=== PATIENT | female | born 1930 | race Caucasian/White ===

== ENCOUNTER 2016-09-13 19:59 | Inpatient (IN) | payer OTHER ==
--- NOTE | 2016-09-13 20:10 | PDOC ---
History of Present Illness - General History Source: Patient Exam Limitations: No Limitations - History of Present Illness Initial Comments: 09/13/16 21:24 A portion of this note was documented by scribe services under my direction. I have reviewed the details of the note, within reason, and agree with the documentation. The case summary and management plan written by me. Assessment and plan: This is an 86-year-old female who comes in with increasing confusion over the last 48 hours. Patient is brought in by her family for evaluation. Patient went to her primary care doctor who told her she should be admitted to the hospital for altered mental status workup. Patient had a CT that was negative for any acute pathology. Patient's EKG showed atrial fibrillation at a rate of 91 patient has a history of atrial fibrillation and is xeralto. Patient said she has been med compliant. Patient's checks S sclerae shows no acute pathology Patient will be admitted to an inpatient bed under the service of Dr. Snow. <Mary Saenz I - Last Filed: 09/13/16 21:24> - General History Source: Patient, Family Exam Limitations: No Limitations - History of Present Illness Initial Comments: 09/13/16 20:32 The patient is a 86 year old female, with significant past medical history of HTN, HLD, Afib, glaucoma, who presents today complaining of 10 days of confusion. The patient states that she is confused because she is forgetting what month and what day it is. The patients sisters accompany her to the emergency room and states that she has not been able to carry on normal conversation. The patient lives on her own. The patient complains of dysuria and believes that she may have a UTI. She visited her PCP at [facility] in the city today who tested negative for a UTI. Her PCP recommended she go across the street to the [facility] emergency department, but they came to this hospital instead. Denies chest pain, SOB, palpitations. Denies headache, dizziness. Denies fever, chills, nausea, vomiting. Allergies: none reported PCP- [facility] Review of Systems General: No fevers or chills, no weakness, no weight loss HEENT: No change in vision. No sore throat,. No ear pain CardioVascular: No chest pain or shortness of breath Respiratory:No cough, or wheezing. Gastrointestinal: no nausea, vomiting, diarrhea or constipation, No rectal bleeding Genitourinary: +dysuria. No hematuria, or frequency Musculoskeletal: No joint or muscle pain or swelling Neurologic: +increased confusion over the past 10 days. No headache, vertigo, dizziness or loss of consciousness Psychiatric: nor depression Skin: No rashes or easy bruising Endocrine: no increased thirst or abnormal weight change Allergic: no skin or latex allergy All other systems reviewed and normal Physical Exam General: Well-nourished well-developed individual, no acute distress HEENT: Throat: Normal, tonsils normal, no erythema or exudate Neck: Supple, no meningeal signs, no lymphadenopathy Eyes::Pupils equal reactive and round, extraocular motion intact Chest: Nontender to palpation Cardiac: S1-S2 normal, regular rate and rhythm, no murmurs rubs or gallops Respiratory: Lungs clear to auscultation bilateral Abdomen: Soft, nondistended, normal bowel sounds, nontender to palpation diffusely Extremities: Warm, dry, no cyanosis, clubbing, or edema Skin: No rashes Neuro: Alert and oriented x1, nonfocal exam, grossly intact, normal gait Psych: Normal mood and affect <Marlene Santana - Last Filed: 09/13/16 21:32> - General Chief Complaint: Altered Mental Status Stated Complaint: INCREASED CONFUSION X1 WEEK Time Seen by Provider: 09/13/16 20:09 Past History - Psycho/Social/Smoking Cessation Hx Suicidal Ideation: No Smoking History: Never smoked <Mary Saenz I - Last Filed: 09/13/16 21:24> - Past Medical History Cardiac Disorders: Yes (Afib) HTN: Yes Hypercholesterolemia: Yes <Marlene Santana - Last Filed: 09/13/16 21:32> - Past Medical History Allergies/Adverse Reactions: Allergies Allergy/AdvReac Type Severity Reaction Status Date / Time No Known Allergies Allergy Unverified 09/13/16 20:02 Home Medications: Ambulatory Orders Dorzolamide HCl [Trusopt 2%] 1 drop OD BID 09/13/16 Latanoprost 0.005% Eye Drops [Xalatan 0.005% Eye Drops -] 1 drop OU HS 09/13/16 Lisinopril 10 mg PO DAILY 09/13/16 Lovastatin 20 mg PO DAILY 09/13/16 Rivaroxaban [Xarelto -] 20 mg PO DAILY 09/13/16 Review of Systems - Review of Systems Able to Perform ROS?: Yes <Marlene Santana - Last Filed: 09/13/16 21:32> *Physical Exam - Vital Signs Last Vital Signs Temp Pulse Resp BP Pulse Ox 99 F 96 H 24 136/79 99 09/13/16 20:06 09/13/16 20:06 09/13/16 20:06 09/13/16 20:06 09/13/16 20:06 <Mary Saenz I - Last Filed: 09/13/16 21:24> - Vital Signs Last Vital Signs Temp Pulse Resp BP Pulse Ox 99 F 96 H 24 136/79 99 09/13/16 20:06 09/13/16 20:06 09/13/16 20:06 09/13/16 20:06 09/13/16 20:06 <Marlene Santana - Last Filed: 09/13/16 21:32> ED Treatment Course - LABORATORY CBC & Chemistry Diagram: 09/13/16 20:30 09/13/16 20:30 <Mary Saenz I - Last Filed: 09/13/16 21:24> - LABORATORY CBC & Chemistry Diagram: 09/13/16 20:30 09/13/16 20:30 - RADIOLOGY Radiograph Interpretation: 09/13/16 21:11 EXAM#: TYPE/EXAM: RESULT: [id number] RAD/CHEST X-RAY PORTABLE* HISTORY PROVIDED: Altered mental status. A single frontal portable projection of the chest at 8:37 PM is submitted. The heart size is within normal limits. The lung perez are free of pulmonary infiltrates or pleural effusions. There is tortuosity and calcification of the thoracic aorta and degenerative changes of the thoracic spine. IMPRESSION: No acute disease. Reported By: Timbo Ferrari MD 09/13/16 5458 EXAM#: TYPE/EXAM: RESULT: [id number] CT/HEAD CT WITHOUT CONTRAST HISTORY PROVIDED: Altered mental status TECHNIQUE: Sequential axial images were obtained from the base of the skull to the vertex. There is no evidence of acute intracranial hemorrhage, mass lesions or infarctions. There is a moderate degree of diffuse cerebral atrophy with sulcal widening and ventricular dilatation. Hypodense changes are noted within the periventricular white matter consistent with chronic, small vessel ischemia. IMPRESSION: No evidence of acute intracranial pathology. Reported By: Timbo Ferrari MD 09/13/16 2100 - Additional Consults Consult/PCP: Dr. Bryson Lee Reason/Comments: Consult for tomorrow morning as requested by Dr. Snow. <Marlene Santana - Last Filed: 09/13/16 21:32> *DC/Admit/Observation/Transfer - Discharge Dispostion Admit: Yes <Mary Saenz I - Last Filed: 09/13/16 21:24> - Attestations Scribe Attestion: 09/13/16 20:33 Documentation prepared by SULLY Gary, acting as biomedical scientist for Mary Saenz MD. <Marlene Santana - Last Filed: 09/13/16 21:32> Diagnosis at time of Disposition: Altered mental status Qualifiers: Altered mental status type: unspecified Qualified Code(s): R41.82 - Altered mental status, unspecified - Discharge Dispostion Condition at time of disposition: Stable - Referrals Referrals: STAFF,NOT ON [Primary Care Provider] -
[2016-09-13 20:14] VITALS: BMI 20.2
[2016-09-13 20:35] LABS: EOSINOPHIL 0.4 % (0-4.5); MEAN PLT VOLUME 8.2 fl (7.5-11.1)
[2016-09-13 20:49] LABS: BASOPHIL 0.9 % (0-2.0); MCH 32.1 pg (25.7-33.7); MCHC 33.5 g/dl (32.0-36.0); MEAN CELL VOLUME 95.7 fl (80-96); NEUTROPHILS 64.4 % (42.8-82.8); PLATELET COUNT 248 K/MM3 (134-434); RDW 12.6 % (11.6-15.6)
[2016-09-13 20:57] LABS: ALBUMIN 4.2 g/dl (3.5-5.0); ALK PHOS 66 U/L (32-92); ANION GAP 11 (8-16); BILIRUBIN,TOTAL 1.4 mg/dl (0.2-1.0); CALCIUM 9.1 mg/dl (8.4-10.2); CO2 24 mmol/L (22-28); CPK(DFH) 848 IU/L (26-140); CREATININE 0.9 mg/dl (0.6-1.3); GLUCOSE,RANDOM 96 mg/dl (74-106); SGOT/AST 54 U/L (10-42); SGPT/ALT 23 U/L (10-40); TOT PROT 6.5 g/dl (6.4-8.3)
[2016-09-13 21:49] LABS: TROPONIN I (DFP) < 0.03 ng/ml (0.03-0.50)
[2016-09-13 22:15] LABS: URINE APPEARANCE Clear; URINE BILIRUBIN 1+ (NEGATIVE); URINE GLUCOSE (UA) Negative (NEGATIVE); URINE KETONE 2+ (NEGATIVE); URINE NITRITE Negative (NEGATIVE); URINE PROTEIN Negative (NEGATIVE); URINE UROBILINOGEN 0.2 E.U/dl (0.2-1.0)
[2016-09-13 22:16] LABS: URINE BLOOD 2+ (NEGATIVE); URINE COLOR AMBER; URINE LEUK ESTERASE 1+ (NEGATIVE)
[2016-09-13 22:37] LABS: URINE WBC 20-30 (3-5)
[2016-09-14] MEDS ORDERED: ACETAMINOPHEN 325 MG TABLET (FP) PO PRN (00:18)
[2016-09-14] MEDS ORDERED: LEVOFLOXACIN 500 MG IVPB 100 ML IVPB ONE (00:30)
[2016-09-14] MEDS: SODIUM CHLORIDE 1,000 ML IV SCH (00:33)
[2016-09-14 08:07] LABS: ALBUMIN 3.6 g/dl (3.5-5.0); ALK PHOS 57 U/L (32-92); ANION GAP 9 (8-16); BILIRUBIN,TOTAL 1.4 mg/dl (0.2-1.0); CALCIUM 8.7 mg/dl (8.4-10.2); CO2 23 mmol/L (22-28); CREATININE 0.7 mg/dl (0.6-1.3); GLUCOSE,RANDOM 85 mg/dl (74-106); SGOT/AST 43 U/L (10-42); SGPT/ALT 20 U/L (10-40); TOT PROT 5.7 g/dl (6.4-8.3)
[2016-09-14 08:20] LABS: BASOPHIL 0.8 % (0-2.0); EOSINOPHIL 0.5 % (0-4.5); MCH 31.8 pg (25.7-33.7); MCHC 33.2 g/dl (32.0-36.0); MEAN CELL VOLUME 95.8 fl (80-96); MEAN PLT VOLUME 8.4 fl (7.5-11.1); NEUTROPHILS 61.4 % (42.8-82.8); PLATELET COUNT 206 K/MM3 (134-434); RDW 12.3 % (11.6-15.6); WHITE BLOOD COUNT 4.5 K/mm3 (4.0-10.8)
[2016-09-14] MEDS ORDERED: PT OWN MED DRAWER 7, Y5N ONE (09:31)
[2016-09-14] MEDS: DORZOLAMIDE 2% HCL OPHTHALMIC SOLUTION 10 ML BOTTLE OD SCH ×2 (09:37→21:31)
[2016-09-14] MEDS: LISINOPRIL 10 MG TABLET (FP) PO SCH (09:37)
[2016-09-14] MEDS: RIVAROXABAN 20 MG TABLET PO SCH (09:39)
[2016-09-14] MEDS ORDERED: LOVASTATIN 20 MG PO SCH (10:00)
[2016-09-14] MEDS ORDERED: LEVOFLOXACIN 500 MG IVPB 100 ML IVPB SCH (11:00)
--- NOTE | 2016-09-14 15:21 | CONSULT ---
Consult Consult Specialty:: infectious diseases Reason for Consultation:: uti - History of Present Illness Chief Complaint: ams History of Present Illness: 86-year-old female got admitted for increasing confusion patient was admitted and worked up currently patient is doing well looks like she is at baseline family in the room who says that the patient was not the same when the sister talked to her on the phone and found that she was confused and was brought to the hospital - History Source History Provided By: Family Member Limitations to Obtaining History: Clinical Condition - Past Medical History ...LMP Comment: PATIENT IS 86 YEAR OLD ...: No - Alcohol/Substance Use Hx Alcohol Use: No - Smoking History Smoking history: Never smoked Home Medications - Allergies Allergies/Adverse Reactions: Allergies Allergy/AdvReac Type Severity Reaction Status Date / Time No Known Allergies Allergy Unverified 09/13/16 20:02 - Home Medications Home Medications: Ambulatory Orders Dorzolamide HCl [Trusopt 2%] 1 drop OD BID 09/13/16 Latanoprost 0.005% Eye Drops [Xalatan 0.005% Eye Drops -] 1 drop OU HS 09/13/16 Lisinopril 10 mg PO DAILY 09/13/16 Lovastatin 20 mg PO DAILY 09/13/16 Rivaroxaban [Xarelto -] 20 mg PO DAILY 09/13/16 Review of Systems - Review of Systems Constitutional: reports: No Symptoms Eyes: reports: No Symptoms HENT: reports: No Symptoms Neck: reports: No Symptoms Cardiovascular: reports: No Symptoms Respiratory: reports: No Symptoms Gastrointestinal: reports: No Symptoms Genitourinary: reports: No Symptoms Musculoskeletal: reports: No Symptoms Integumentary: reports: No Symptoms Neurological: reports: Change in LOC, Other (ams) Endocrine: reports: No Symptoms Hematology/Lymphatic: reports: No Symptoms Psychiatric: reports: No Symptoms Physical Exam Vital Signs: Vital Signs Temperature 98.4 F 09/14/16 14:19 Pulse Rate 103 H 09/14/16 14:19 Respiratory Rate 16 09/14/16 14:19 Blood Pressure 131/71 09/14/16 14:19 O2 Sat by Pulse Oximetry (%) 98 09/14/16 14:19 Constitutional: Yes: No Distress, Calm Eyes: Yes: Conjunctiva Clear Neck: Yes: Supple, Trachea Midline Cardiovascular: Yes: Regular Rate and Rhythm Respiratory: Yes: Regular, CTA Bilaterally Gastrointestinal: Yes: Normal Bowel Sounds, Soft Musculoskeletal: Yes: WNL Extremities: Yes: WNL Neurological: Yes: Alert, Oriented Psychiatric: Yes: Alert, Oriented Labs: CBC, BMP 09/14/16 07:20 09/14/16 07:20 Imaging - Results Chest X-ray: Report Reviewed, Image Reviewed Cat Scan: Report Reviewed, Image Reviewed Assessment/Plan Problems (1) Altered mental status Code(s): R41.82 - ALTERED MENTAL STATUS, UNSPECIFIED Qualifiers: Altered mental status type: unspecified Qualified Code(s): R41.82 - Altered mental status, unspecified (2) UTI (urinary tract infection) Code(s): N39.0 - URINARY TRACT INFECTION, SITE NOT SPECIFIED patient started on abx plan continue current abx await for cx to be back
[2016-09-14] MEDS: CEFTRIAXONE 50 ML IVPB SCH (16:00)
--- NOTE | 2016-09-14 17:41 | HP ---
Admitting History and Physical - Primary Care Physician PCP: Lety Snow - Admission History of Present Illness: 86-year-old female who comes in with increasing confusion over the last 48 hours. Patient is brought in by her family for evaluation. Patient went to her primary care doctor who told her she should be admitted to the hospital for altered mental status workup. Patient had a CT that was negative for any acute pathology. - Past Medical History Cardiovascular: Yes: HTN ...LMP Comment: PATIENT IS 86 YEAR OLD ...: No - Smoking History Smoking history: Never smoked - Alcohol/Substance Use Hx Alcohol Use: No Home Medications - Allergies Allergies/Adverse Reactions: Allergies Allergy/AdvReac Type Severity Reaction Status Date / Time No Known Allergies Allergy Unverified 09/13/16 20:02 - Home Medications Home Medications: Ambulatory Orders Dorzolamide HCl [Trusopt 2%] 1 drop OD BID 09/13/16 Latanoprost 0.005% Eye Drops [Xalatan 0.005% Eye Drops -] 1 drop OU HS 09/13/16 Lisinopril 10 mg PO DAILY 09/13/16 Lovastatin 20 mg PO DAILY 09/13/16 Rivaroxaban [Xarelto -] 20 mg PO DAILY 09/13/16 Review of Systems - Review of Systems Neurological: reports: Confusion Physical Examination Vital Signs: Vital Signs Temperature 98.4 F 09/14/16 14:19 Pulse Rate 103 H 09/14/16 14:19 Respiratory Rate 16 09/14/16 14:19 Blood Pressure 131/71 09/14/16 14:19 O2 Sat by Pulse Oximetry (%) 98 09/14/16 14:19 Constitutional: Yes: No Distress HENT: Yes: Atraumatic Neck: Yes: Supple Cardiovascular: Yes: Regular Rate and Rhythm Respiratory: Yes: CTA Bilaterally Gastrointestinal: Yes: Normal Bowel Sounds Extremities: Yes: WNL Neurological: Yes: Alert Labs: CBC, BMP 09/14/16 07:20 09/14/16 07:20 Problem List - Problems (1) Altered mental status Assessment/Plan: uti on abx id consult iv hydration doing well Code(s): R41.82 - ALTERED MENTAL STATUS, UNSPECIFIED Qualifiers: Altered mental status type: unspecified Qualified Code(s): R41.82 - Altered mental status, unspecified (2) UTI (urinary tract infection) Assessment/Plan: cxs pending Code(s): N39.0 - URINARY TRACT INFECTION, SITE NOT SPECIFIED Assessment/Plan Laboratory Tests 09/13/16 09/13/16 09/13/16 20:30 20:30 20:30 WBC 6.0 RBC 4.50 Hgb 14.4 Hct 43.0 MCV 95.7 MCHC 33.5 RDW 12.6 Plt Count 248 MPV 8.2 Neutrophils % 64.4 Lymphocytes % 24.9 Monocytes % 9.4 Eosinophils % 0.4 Basophils % 0.9 Sodium 141 Potassium 3.8 Chloride 106 Carbon Dioxide 24 Anion Gap 11 BUN 30 H Creatinine 0.9 Creat Clearance w eGFR 59.23 Random Glucose 96 Calcium 9.1 Total Bilirubin 1.4 H AST 54 H ALT 23 Alkaline Phosphatase 66 Creatine Kinase 848 H CK-MB (CK-2) 18.820 H Troponin I < 0.03 L Total Protein 6.5 Albumin 4.2 Urine Color Urine Appearance Urine pH Ur Specific [place] Urine Protein Urine Glucose (UA) Urine Ketones Urine Blood Urine Nitrite Urine Bilirubin Urine Urobilinogen Ur Leukocyte Esterase Urine RBC Urine WBC Ur Epithelial Cells 09/13/16 09/14/16 09/14/16 22:05 07:20 07:20 WBC 4.5 RBC 4.25 Hgb 13.5 Hct 40.7 MCV 95.8 MCHC 33.2 RDW 12.3 Plt Count 206 MPV 8.4 Neutrophils % 61.4 Lymphocytes % 26.2 Monocytes % 11.1 H Eosinophils % 0.5 Basophils % 0.8 Sodium 139 Potassium 3.7 Chloride 107 Carbon Dioxide 23 Anion Gap 9 BUN 20 H D Creatinine 0.7 D Creat Clearance w eGFR Y Random Glucose 85 Calcium 8.7 Total Bilirubin 1.4 H AST 43 H D ALT 20 Alkaline Phosphatase 57 Creatine Kinase CK-MB (CK-2) Troponin I Total Protein 5.7 L Albumin 3.6 Urine Color Amy Urine Appearance Clear Urine pH 5.0 Ur Specific [place] 1.025 Urine Protein Negative Urine Glucose (UA) Negative Urine Ketones 2+ H Urine Blood 2+ H Urine Nitrite Negative Urine Bilirubin 1+ H Urine Urobilinogen 0.2 e.u/dl Ur Leukocyte Esterase 1+ H Urine RBC 5-8 Urine WBC 20-30 Ur Epithelial Cells Few Active Medications Generic Name Dose Route Start Last Admin Trade Name Freq PRN Reason Stop Dose Admin Acetaminophen 650 mg 09/14/16 00:18 09/14/16 00:35 Tylenol - PO 650 mg Q6H PRN Administration FEVER OR PAIN Dorzolamide HCl 1 drop 09/14/16 10:00 09/14/16 09:37 Trusopt 2% OD 1 drop BID PHIL Administration Sodium Chloride 1,000 mls @ 50 mls/hr 09/14/16 00:30 09/14/16 00:33 Normal Saline - IV 50 mls/hr ASDIR PHIL Administration Ceftriaxone Sodium 50 mls @ 100 mls/hr 09/14/16 15:30 09/14/16 16:00 Rocephin 1gm Ivpb (Pre-Docked) IVPB 100 mls/hr DAILY PHIL Administration Latanoprost 1 drop 09/14/16 22:00 Xalatan 0.005% Eye Drops - OU HS PHIL Lisinopril 10 mg 09/14/16 10:00 09/14/16 09:37 Prinivil PO 10 mg DAILY PHIL Administration Lovastatin 20 Mg 1 each 09/14/16 10:00 PO DAILY PHIL Rivaroxaban 20 mg 09/14/16 10:00 09/14/16 09:39 Xarelto - PO 20 mg DAILY PHIL Administration
[2016-09-14] MEDS: LATANOPROST 0.005% OPHTH SOLN 2.5ML BOTTLE OU SCH (21:48)
[2016-09-14] MEDS ORDERED: REFRIGERATED ANITBIOTICS ONE (21:51)
[2016-09-15] MEDS: SODIUM CHLORIDE 1,000 ML IV SCH (00:30)
[2016-09-15] MEDS ORDERED: PT OWN MED DRAWER 7, Y5N ONE (10:17)
[2016-09-15] MEDS: DORZOLAMIDE 2% HCL OPHTHALMIC SOLUTION 10 ML BOTTLE OD SCH ×2 (10:26→21:25)
[2016-09-15] MEDS: CEFTRIAXONE 50 ML IVPB SCH (10:26)
[2016-09-15] MEDS: LISINOPRIL 10 MG TABLET (FP) PO SCH (10:26)
[2016-09-15] MEDS: RIVAROXABAN 20 MG TABLET PO SCH (10:27)
--- NOTE | 2016-09-15 17:48 | PN ---
Progress Note, Physician History of Present Illness: doing well - Current Medication List Current Medications: Active Medications Acetaminophen (Tylenol -) 650 mg PO Q6H PRN PRN Reason: FEVER OR PAIN Last Admin: 09/14/16 00:35 Dose: 650 mg Dorzolamide HCl (Trusopt 2%) 1 drop OD BID [facility] Last Admin: 09/15/16 10:26 Dose: 1 drop Sodium Chloride (Normal Saline -) 1,000 mls @ 50 mls/hr IV ASDIR [facility] Last Admin: 09/15/16 00:30 Dose: 50 mls/hr Ceftriaxone Sodium (Rocephin 1gm Ivpb (Pre-Docked)) 50 mls @ 100 mls/hr IVPB DAILY [facility] Last Admin: 09/15/16 10:26 Dose: 100 mls/hr Latanoprost (Xalatan 0.005% Eye Drops -) 1 drop OU HS [facility] Last Admin: 09/14/16 21:48 Dose: 1 drop Lisinopril (Prinivil) 10 mg PO DAILY [facility] Last Admin: 09/15/16 10:26 Dose: 10 mg Lovastatin 20 Mg 1 each PO DAILY [facility] Rivaroxaban (Xarelto -) 20 mg PO DAILY [facility] Last Admin: 09/15/16 10:27 Dose: 20 mg - Objective Vital Signs: Vital Signs Temperature 98 F 09/15/16 14:22 Pulse Rate 90 09/15/16 14:22 Respiratory Rate 16 09/15/16 14:22 Blood Pressure 122/81 09/15/16 14:22 O2 Sat by Pulse Oximetry (%) 98 09/15/16 14:22 Constitutional: Yes: No Distress HENT: Yes: Atraumatic Neck: Yes: Supple Respiratory: Yes: CTA Bilaterally Gastrointestinal: Yes: Normal Bowel Sounds Extremities: Yes: WNL Neurological: Yes: Alert, Oriented Labs: CBC, BMP 09/14/16 07:20 09/14/16 07:20 Problem List - Problems (1) Altered mental status Assessment/Plan: uti on abx id consult iv hydration doing well Code(s): R41.82 - ALTERED MENTAL STATUS, UNSPECIFIED Qualifiers: Altered mental status type: unspecified Qualified Code(s): R41.82 - Altered mental status, unspecified (2) UTI (urinary tract infection) Assessment/Plan: cxs pending Code(s): N39.0 - URINARY TRACT INFECTION, SITE NOT SPECIFIED
[2016-09-15] MEDS: LATANOPROST 0.005% OPHTH SOLN 2.5ML BOTTLE OU SCH (21:26)
[2016-09-16] MEDS: LISINOPRIL 10 MG TABLET (FP) PO SCH (09:24)
[2016-09-16] MEDS: CEFTRIAXONE 50 ML IVPB SCH (09:25)
[2016-09-16] MEDS: DORZOLAMIDE 2% HCL OPHTHALMIC SOLUTION 10 ML BOTTLE OD SCH ×2 (09:25→21:07)
[2016-09-16] MEDS: RIVAROXABAN 20 MG TABLET PO SCH (09:26)
--- NOTE | 2016-09-16 10:49 | PN ---
Progress Note, Physician History of Present Illness: stable doing well no issues - Current Medication List Current Medications: Active Medications Acetaminophen (Tylenol -) 650 mg PO Q6H PRN PRN Reason: FEVER OR PAIN Last Admin: 09/14/16 00:35 Dose: 650 mg Dorzolamide HCl (Trusopt 2%) 1 drop OD BID [facility] Last Admin: 09/16/16 09:25 Dose: 1 drop Sodium Chloride (Normal Saline -) 1,000 mls @ 50 mls/hr IV ASDIR [facility] Last Admin: 09/15/16 00:30 Dose: 50 mls/hr Ceftriaxone Sodium (Rocephin 1gm Ivpb (Pre-Docked)) 50 mls @ 100 mls/hr IVPB DAILY [facility] Last Admin: 09/16/16 09:25 Dose: 100 mls/hr Latanoprost (Xalatan 0.005% Eye Drops -) 1 drop OU HS [facility] Last Admin: 09/15/16 21:26 Dose: 1 drop Lisinopril (Prinivil) 10 mg PO DAILY [facility] Last Admin: 09/16/16 09:24 Dose: 10 mg Lovastatin 20 Mg 1 each PO DAILY [facility] Rivaroxaban (Xarelto -) 20 mg PO DAILY [facility] Last Admin: 09/16/16 09:26 Dose: 20 mg - Objective Vital Signs: Vital Signs Temperature 97.6 F 09/16/16 06:18 Pulse Rate 81 09/16/16 06:18 Respiratory Rate 18 09/16/16 08:16 Blood Pressure 138/40 09/16/16 06:18 O2 Sat by Pulse Oximetry (%) 96 09/16/16 08:16 Constitutional: Yes: No Distress, Calm Cardiovascular: Yes: Regular Rate and Rhythm Respiratory: Yes: Regular, CTA Bilaterally Gastrointestinal: Yes: Normal Bowel Sounds, Soft Musculoskeletal: Yes: WNL Extremities: Yes: WNL Neurological: Yes: Alert Psychiatric: Yes: Alert Labs: CBC, BMP 09/14/16 07:20 09/14/16 07:20 Assessment/Plan Problems (1) Altered mental status Code(s): R41.82 - ALTERED MENTAL STATUS, UNSPECIFIED Qualifiers: Altered mental status type: unspecified Qualified Code(s): R41.82 - Altered mental status, unspecified (2) UTI (urinary tract infection) Code(s): N39.0 - URINARY TRACT INFECTION, SITE NOT SPECIFIED urine contaminated repeat urine send plan continue current abx await for cx to be back
--- NOTE | 2016-09-16 14:23 | PN ---
Progress Note, Physician History of Present Illness: doing well - Current Medication List Current Medications: Active Medications Acetaminophen (Tylenol -) 650 mg PO Q6H PRN PRN Reason: FEVER OR PAIN Last Admin: 09/14/16 00:35 Dose: 650 mg Dorzolamide HCl (Trusopt 2%) 1 drop OD BID [facility] Last Admin: 09/16/16 09:25 Dose: 1 drop Sodium Chloride (Normal Saline -) 1,000 mls @ 50 mls/hr IV ASDIR [facility] Last Admin: 09/15/16 00:30 Dose: 50 mls/hr Ceftriaxone Sodium (Rocephin 1gm Ivpb (Pre-Docked)) 50 mls @ 100 mls/hr IVPB DAILY [facility] Last Admin: 09/16/16 09:25 Dose: 100 mls/hr Latanoprost (Xalatan 0.005% Eye Drops -) 1 drop OU HS [facility] Last Admin: 09/15/16 21:26 Dose: 1 drop Lisinopril (Prinivil) 10 mg PO DAILY [facility] Last Admin: 09/16/16 09:24 Dose: 10 mg Lovastatin 20 Mg 1 each PO DAILY [facility] Rivaroxaban (Xarelto -) 20 mg PO DAILY [facility] Last Admin: 09/16/16 09:26 Dose: 20 mg - Objective Vital Signs: Vital Signs Temperature 97.6 F 09/16/16 06:18 Pulse Rate 81 09/16/16 06:18 Respiratory Rate 18 09/16/16 08:16 Blood Pressure 138/40 09/16/16 06:18 O2 Sat by Pulse Oximetry (%) 96 09/16/16 08:16 Constitutional: Yes: No Distress HENT: Yes: Atraumatic Neck: Yes: Supple Cardiovascular: Yes: Regular Rate and Rhythm Respiratory: Yes: CTA Bilaterally Gastrointestinal: Yes: Normal Bowel Sounds Extremities: Yes: WNL Neurological: Yes: Alert, Oriented Labs: CBC, BMP 09/14/16 07:20 09/14/16 07:20 Problem List - Problems (1) Altered mental status Assessment/Plan: uti on abx id consult iv hydration doing well Code(s): R41.82 - ALTERED MENTAL STATUS, UNSPECIFIED Qualifiers: Altered mental status type: unspecified Qualified Code(s): R41.82 - Altered mental status, unspecified (2) UTI (urinary tract infection) Assessment/Plan: cxs pending Code(s): N39.0 - URINARY TRACT INFECTION, SITE NOT SPECIFIED Assessment/Plan
[2016-09-16] MEDS: LATANOPROST 0.005% OPHTH SOLN 2.5ML BOTTLE OU SCH (21:08)
[2016-09-16] MEDS ORDERED: REFRIGERATED ANITBIOTICS ONE (21:09)
[2016-09-17] MEDS: SODIUM CHLORIDE 1,000 ML IV SCH (01:08)
--- NOTE | 2016-09-17 08:41 | EKG ---
Test Reason : Blood Pressure : / mmHG Vent. Rate : 091 BPM Atrial Rate : 093 BPM P-R Int : 000 ms QRS Dur : 086 ms QT Int : 380 ms P-R-T Axes : 000 -44 015 degrees QTc Int : 467 ms ATRIAL FIBRILLATION LEFT AXIS DEVIATION MODERATE VOLTAGE CRITERIA FOR LVH, MAY BE NORMAL VARIANT NONSPECIFIC ST ABNORMALITY ABNORMAL ECG NO PREVIOUS ECGS AVAILABLE Confirmed by MATEO GARCIA MD ([id number]) on 09/17/2016 8:41:03 AM Referred By: DR BEAL Confirmed By:MATEO GARCIA MD
[2016-09-17] MEDS ORDERED: PT OWN MED DRAWER 7, Y5N ONE (09:51)
[2016-09-17] MEDS: LISINOPRIL 10 MG TABLET (FP) PO SCH (09:54)
[2016-09-17] MEDS: RIVAROXABAN 10 MG TABLET PO SCH (09:54)
[2016-09-17] MEDS: DORZOLAMIDE 2% HCL OPHTHALMIC SOLUTION 10 ML BOTTLE OD SCH ×2 (09:55→21:58)
[2016-09-17] MEDS: CEFTRIAXONE 50 ML IVPB SCH (09:55)
--- NOTE | 2016-09-17 15:24 | PN ---
Progress Note, Physician History of Present Illness: patient much more awake and alert according to family still confused but improving no complaints - Current Medication List Current Medications: Active Medications Acetaminophen (Tylenol -) 650 mg PO Q6H PRN PRN Reason: FEVER OR PAIN Last Admin: 09/14/16 00:35 Dose: 650 mg Dorzolamide HCl (Trusopt 2%) 1 drop OD BID [facility] Last Admin: 09/17/16 09:55 Dose: 1 drop Sodium Chloride (Normal Saline -) 1,000 mls @ 50 mls/hr IV ASDIR [facility] Last Admin: 09/17/16 01:08 Dose: 50 mls/hr Ceftriaxone Sodium (Rocephin 1gm Ivpb (Pre-Docked)) 50 mls @ 100 mls/hr IVPB DAILY [facility] Last Admin: 09/17/16 09:55 Dose: 100 mls/hr Latanoprost (Xalatan 0.005% Eye Drops -) 1 drop OU HS [facility] Last Admin: 09/16/16 21:08 Dose: 1 drop Lisinopril (Prinivil) 10 mg PO DAILY [facility] Last Admin: 09/17/16 09:54 Dose: 10 mg Lovastatin 20 Mg 1 each PO DAILY [facility] Rivaroxaban (Xarelto -) 20 mg PO DAILY [facility] Last Admin: 09/17/16 09:54 Dose: 20 mg - Objective Vital Signs: Vital Signs Temperature 98.4 F 09/17/16 14:24 Pulse Rate 97 H 09/17/16 14:24 Respiratory Rate 18 09/17/16 14:24 Blood Pressure 141/83 09/17/16 14:24 O2 Sat by Pulse Oximetry (%) 98 09/17/16 14:24 Constitutional: Yes: No Distress, Calm Cardiovascular: Yes: Regular Rate and Rhythm Respiratory: Yes: Regular, CTA Bilaterally Gastrointestinal: Yes: Normal Bowel Sounds, Soft Musculoskeletal: Yes: WNL Extremities: Yes: WNL Neurological: Yes: Alert, Other Labs: CBC, BMP 09/14/16 07:20 09/14/16 07:20 Assessment/Plan Problems (1) Altered mental status Code(s): R41.82 - ALTERED MENTAL STATUS, UNSPECIFIED Qualifiers: Altered mental status type: unspecified Qualified Code(s): R41.82 - Altered mental status, unspecified (2) UTI (urinary tract infection) Code(s): N39.0 - URINARY TRACT INFECTION, SITE NOT SPECIFIED plan continue current abx await for cx to be back rest ct as per angelique team
--- NOTE | 2016-09-17 20:06 | PN ---
Progress Note, Physician History of Present Illness: doing well - Current Medication List Current Medications: Active Medications Acetaminophen (Tylenol -) 650 mg PO Q6H PRN PRN Reason: FEVER OR PAIN Last Admin: 09/14/16 00:35 Dose: 650 mg Dorzolamide HCl (Trusopt 2%) 1 drop OD BID [facility] Last Admin: 09/17/16 09:55 Dose: 1 drop Sodium Chloride (Normal Saline -) 1,000 mls @ 50 mls/hr IV ASDIR [facility] Last Admin: 09/17/16 01:08 Dose: 50 mls/hr Ceftriaxone Sodium (Rocephin 1gm Ivpb (Pre-Docked)) 50 mls @ 100 mls/hr IVPB DAILY [facility] Last Admin: 09/17/16 09:55 Dose: 100 mls/hr Latanoprost (Xalatan 0.005% Eye Drops -) 1 drop OU HS [facility] Last Admin: 09/16/16 21:08 Dose: 1 drop Lisinopril (Prinivil) 10 mg PO DAILY [facility] Last Admin: 09/17/16 09:54 Dose: 10 mg Lovastatin 20 Mg 1 each PO DAILY [facility] Rivaroxaban (Xarelto -) 20 mg PO DAILY [facility] Last Admin: 09/17/16 09:54 Dose: 20 mg - Objective Vital Signs: Vital Signs Temperature 98.4 F 09/17/16 14:24 Pulse Rate 97 H 09/17/16 14:24 Respiratory Rate 18 09/17/16 14:24 Blood Pressure 141/83 09/17/16 14:24 O2 Sat by Pulse Oximetry (%) 98 09/17/16 14:24 Constitutional: Yes: No Distress HENT: Yes: Atraumatic Neck: Yes: Supple Cardiovascular: Yes: Regular Rate and Rhythm Respiratory: Yes: CTA Bilaterally Gastrointestinal: Yes: Normal Bowel Sounds Extremities: Yes: WNL Neurological: Yes: Alert, Oriented Labs: CBC, BMP 09/14/16 07:20 09/14/16 07:20 Problem List - Problems (1) Altered mental status Assessment/Plan: RESOLVED PT KNOWS HER SURROUNDINGS Code(s): R41.82 - ALTERED MENTAL STATUS, UNSPECIFIED Qualifiers: Altered mental status type: unspecified Qualified Code(s): R41.82 - Altered mental status, unspecified (2) UTI (urinary tract infection) Assessment/Plan: cxs pending ON IV ABX Code(s): N39.0 - URINARY TRACT INFECTION, SITE NOT SPECIFIED (3) Metabolic encephalopathy Assessment/Plan: possible due to uti Code(s): G93.41 - METABOLIC ENCEPHALOPATHY
[2016-09-17] MEDS ORDERED: REFRIGERATED ANITBIOTICS ONE (21:28)
[2016-09-17] MEDS: LATANOPROST 0.005% OPHTH SOLN 2.5ML BOTTLE OU SCH (21:58)
[2016-09-17 22:53] VITALS: TEMP 98.1
[2016-09-18] MEDS ORDERED: REFRIGERATED ANITBIOTICS ONE (05:24)
[2016-09-18 05:51] VITALS: BP 121/81; PULSE 88
[2016-09-18] MEDS: RIVAROXABAN 10 MG TABLET PO SCH (10:00)
[2016-09-18] MEDS: LISINOPRIL 10 MG TABLET (FP) PO SCH (10:00)
[2016-09-18] MEDS: DORZOLAMIDE 2% HCL OPHTHALMIC SOLUTION 10 ML BOTTLE OD SCH (10:00)
[2016-09-18] MEDS ORDERED: PT OWN MED DRAWER 7, Y5N ONE (13:07)
--- NOTE | 2016-09-25 16:50 | DS ---
Physical Examination Vital Signs: Vital Signs Temperature 98.1 F 09/18/16 05:49 Pulse Rate 88 09/18/16 05:49 Respiratory Rate 19 09/18/16 09:00 Blood Pressure 121/81 09/18/16 05:49 O2 Sat by Pulse Oximetry (%) 97 09/18/16 09:00 Labs: CBC, BMP 09/14/16 07:20 09/14/16 07:20 Discharge Summary Reason For Visit: ALTERED MENTAL STATUS Condition: Stable - Instructions Diet, Activity, Other Instructions: continue all medications as prescribed if chest pain, shortness of breath, dizziness or abdominal pain develops please return to the emergency department please follow up with your pcp within 1 week Referrals: Lety Snow MD [Staff Physician] - STAFF,NOT ON [Primary Care Provider] - Disposition: HOME - Home Medications Comprehensive Discharge Medication List: Ambulatory Orders Dorzolamide HCl [Trusopt 2% -] 1 drop OD BID 09/13/16 Latanoprost 0.005% Eye Drops [Xalatan 0.005% Eye Drops -] 1 drop OU HS 09/13/16 Lisinopril 10 mg PO DAILY 09/13/16 Lovastatin 20 mg PO DAILY 09/13/16 Rivaroxaban [Xarelto -] 20 mg PO DAILY 09/13/16 pa home
== END 2016-09-18 13:58 | disposition home or self-care (01) | DRG 689 ==
LOC: SUPCPDRO 19:59 → FER 19:59 → FM/S 21:48
PROVIDERS: ADMIT Internal Medicine; ATTEND Internal Medicine
DX: N39.0 Urinary tract infection, site not specified (principal); G93.41 Metabolic encephalopathy; I10 Essential (primary) hypertension; E78.5 Hyperlipidemia, unspecified; I48.91 Unspecified atrial fibrillation; Z79.01 Long term (current) use of anticoagulants; H40.9 Unspecified glaucoma; R41.82 Altered mental status, unspecified
CPT/HCPCS: 36415; 70450-TC; 71010-TC; 80053; 81003; 81015; 82550; 82553; 84484; 85025; 87086; 93005; 97116-GP; 97162-GP; 99282-25